=== PATIENT | male | born 2000 | race Caucasian/White ===

== ENCOUNTER 2018-05-25 12:24 | Emergency (ER) | payer OTHER ==
[~2018-05-25] VITALS: Ht 182.9 cm; Wt 81.7 kg
[2018-05-25] MEDS ORDERED: CEFD300 PO (13:24)
== END 2018-05-25 13:36 | disposition home or self-care (01) ==
LOC: ER 12:24
DX: H65.93 Unspecified nonsuppurative otitis media, bilateral (principal); F17.200 Nicotine dependence, unspecified, uncomplicated; Z88.1 Allergy status to other antibiotic agents
CPT/HCPCS: 99282